=== PATIENT | female | born 1945 | race Caucasian/White ===

== ENCOUNTER 2016-07-03 19:13 | Emergency (ER) | payer MEDICARE, BC ==
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
[2016-07-03 23:06] VITALS: BP 146/73
== END 2016-07-03 20:13 | disposition home or self-care (01) ==
LOC: ER 19:13
DX: S13.9XXA Sprain of joints and ligaments of unspecified parts of neck, initial encounter (principal); V87.7XXA Person injured in collision between other specified motor vehicles (traffic), initial encounter; Z94.0 Kidney transplant status

== ENCOUNTER 2016-12-23 13:21 | Emergency (ER) | payer MEDICARE, BC ==
--- NOTE | 2016-12-23 13:59 | ERNOTE ---
ENT HPI Date of Service: 12/23/16 Presenting Symptoms: other - sore throat Time Seen by Provider: 12/23/16 13:39 Source: patient Exam Limitations: no limitations - Immun/Allergies/Home Medications Immunizations: IMMUNIZATION HX Immunizations Up to Date Yes History of Influenza Vaccine No Hx Pneumococcal Vaccination Yes Allergies/Adverse Reactions: Allergies Allergy/AdvReac Type Severity Reaction Status Date / Time No Known Drug Allergies Allergy Verified 12/23/16 13:38 Home Medications: HOME MEDICATIONS Atenolol [Tenormin] 100 mg PO BID 07/03/16 [Last Taken Unknown] Tacrolimus 1 mg PO BID 07/03/16 [Last Taken Unknown] - History of Present Illness Narrative: Pt. comes in with c/o fever and sore throat for 2 days. Pt. also states that she has rhinorrhea. Pt. has a hx of renal failure with transplant and decreased hearing. Pt. denies any SOB, CP, cough, rhinorrhea, NVD, alleviating factors, aggravating factors, or prehospital treatment. Review of Systems - Review of Systems Constitutional: Present: no symptoms reported. Absent: recent illness, fever, chills, weakness, fatigue, malaise EYE: Present: no symptoms reported ENT: Present: nose congestion, nasal drainage, sore throat Respiratory: Present: no symptoms reported. Absent: shortness of breath, cough , wheezing Cardiology: Present: no symptoms reported. Absent: chest pain, palpitations, edema Gastrointestinal/Abdominal: Present: no symptoms reported. Absent: nausea, vomiting, diarrhea Genitourinary: Present: no symptoms reported Musculoskeletal: Present: no symptoms reported. Absent: back pain, joint pain Skin: Present: no symptoms reported. Absent: rash, change in color Neurological: Present: no symptoms reported. Absent: headache, dizziness/light- headedness, numbness, tingling All Other Systems: All systems neg except as marked - Patient's Past Medical History Patient History - Medical: Renal Failure Patient History - Cardiac/Respiratory: Hypertension Patient History - Cancer: No Hx of Cancer Patient History - Surgical Procedures: Hysterectomy, Total Knee Replacement, T & A Patient History - Other: Organ Transplant - Social History Living Situations: alone Abuse History: No History of abuse Psych History: No pertinent hx Smoking Status: Former smoker Alcohol Use: none Drug Use: none - Immunizations Immunizations Up to Date: Yes Hx Pneumococcal Vaccination: Yes History of Influenza Vaccine: No Physical Exam - Physical Exam General Appearance: Present: wd/wn, alert, no apparent distress Head Exam: Present: normal inspection, no evidence of injury Eye Exam: Normal inspection: bilateral, PERRL: bilateral, EOMI: bilateral Ears, Nose, Throat: Present: hearing decreased, nasal congestion, pharyngeal erythema. Absent: abnormal TM (R), abnormal TM (L), sinus pain/drainage, pharyngeal swelling, tonsillar exudate, dry mucous membranes Neck: Present: normal inspection, nontender. Absent: lymphadenopathy (R), lymphadenopathy (L) Respiratory: Present: no respiratory distress, normal breath sounds, no accessory muscle use, chest nontender, lungs clear Cardiovascular/Chest: Present: regular rate, rhythm, no murmur, normal peripheral pulses Back Exam: Present: normal inspection Extremity Exam: Present: normal inspection Neurological Exam: Present: alert, oriented, normal mood/affect, no motor/ sensory deficits Skin Exam: Present: normal color, warm/dry. Absent: pallor, skin rash ED Progress - Date and Time Seen: Date and Time: 12/23/16 13:54 Pt. with mild cold s/sx and does not need abx t this time but may need them if she prolongs or gets worse so will have pt. follow up with PCP. - Results and Orders Patient's Lab Results:: I have reviewed the patient's lab results. Results and Orders: Laboratory Results - last 24 hr 12/23/16 13:51 Group A Strep Rapid Negative - Vital Signs Patient's Vital Signs:: I have reviewed the patient's vital signs. Vital Signs: Vital Signs 12/23/16 13:29 Temperature 36.0 C L Pulse Rate 76 Respiratory 16 Rate Blood Pressure 158/80 O2 Sat by Pulse 96 Oximetry - Progress/Reassessment Chief Complaint: Sore Throat Departure Clinical Impression: URI (upper respiratory infection) Qualifiers: URI type: unspecified viral URI Qualified Code(s): J06.9 - Acute upper respiratory infection, unspecified - Departure Disposition: Home self-care Condition: Good Instructions: Upper Respiratory Infection, Adult, [id number] Additional Instructions: Please follow up with your primary provider in 2-3 days. Please start Tylenol 650mg every 4 hours as needed for fever or pain. Please start Claritin 10 mg daily to dry up nasal secretions. Referrals: Julio Cesar Arora MD [Primary Care Provider] -
[2016-12-23 14:37] VITALS: BP 122/71
== END 2016-12-23 14:30 | disposition home or self-care (01) ==
LOC: ER 13:21
DX: J06.9 Acute upper respiratory infection, unspecified (principal)

== ENCOUNTER 2017-09-05 09:30 | Inpatient (IN) ==
[2017-09-05] MEDS ORDERED: LABETALOL HCL 5 MG/ML VIAL IV ONE ×2 (09:58→11:03)
[2017-09-05 10:12] LABS: Hematocrit 41.7 % (37.0-47.0); Hemoglobin 13.6 gm/dL (12.5-16.0); Mean Cell Volume 91.4 fl (78-100); Mean Corpuscular Hemoglobin 29.8 pg (27-31); Mean Corpuscular Hgb Conc 32.6 g/dl (32-36); Mean Platelet Volume 8.6 fl (8-12.5); Neutrophil # 4.5 K/mm3 (1.3-6.0); Neutrophil % 78.2 % (42-75.0); Platelet Count 174 K/mm3 (150-450); Red Blood Count 4.56 M/mm3 (4.2-5.4); Red Cell Distribution Width 12.7 % (11.5-14.0); White Blood Count 5.8 K/mm3 (4.0-10.5)
[2017-09-05 10:41] LABS: Urine Bilirubin Negative (NEGATIVE); Urine Blood 25 /ul (NEGATIVE); Urine Ketone Negative (NEGATIVE); Urine Nitrite Negative (NEGATIVE); Urine Protein 15 mg/dL (NEGATIVE); Urine Specific Gravity 1.015 SP.GR. (1.005-1.010); Urine Urobilinogen Normal (NORMAL)
[2017-09-05 10:43] LABS: ALT 18 U/L (19-67); AST 16 U/L (0-48); Albumin * 3.6 gm/dl (3.4-5.0); Alkaline Phosphatase * 95 U/L (50-170); BUN/Creatinine Ratio 16.8 (9.0-21.6); Bilirubin, Total 0.4 mg/dL (0.0-1.1); Blood Urea Nitrogen 25 mg/dL (3-23); Ca. Corrected For Albumin 10.1 mg/dL (8.4-10.2); Calcium * 10.1 mg/dL (7.9-10.9); Carbon Dioxide 28.2 mmol/L (24-32.6); Glucose * 105 mg/dL (70-110); Total Protein 7.7 gm/dL (6.2-8.2); Troponin I Less than 0.017 ng/ml (0.00-0.10)
[2017-09-05 10:51] LABS: Anion Gap 11.9 mmol/L (6.8-13.8); Chloride 106 mmol/L (97-106); Potassium 5.1 mmol/L (3.4-4.6); Sodium 141 mmol/L (132-142)
[2017-09-05 10:52] LABS: Urine Appearance Cloudy (CLEAR); Urine Color Yellow
[2017-09-05 10:53] LABS: Urine Bacteria 2+
[2017-09-05] MEDS ORDERED: hydrALAZINE HCL 20 MG/ML VIAL ONE (11:59)
[2017-09-05] MEDS ORDERED: hydrALAZINE HCL 20 MG/ML VIAL IV ONE (11:59)
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
[2017-09-05] MEDS: NORMAL SALINE 1,000 ML IV PRN ×2 (13:22→21:46)
[2017-09-05] MEDS: ACETAMINOPHEN 500 MG TABLET PO PRN ×2 (17:08→23:42)
[2017-09-05] MEDS ORDERED: hydrOXYzine HCL 25 MG TABLET PO PRN (17:35)
[2017-09-05] MEDS ORDERED: ALPRAZOLAM 0.25 MG PO PRN (17:35)
[2017-09-05] MEDS ORDERED: ALPRAZolam 0.5 MG TABLET PO PRN (17:48)
[2017-09-05] MEDS: CIPROFLOXACIN HCL 250 MG TABLET PO SCH (17:59)
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
[2017-09-05] MEDS: FAMOTIDINE 20 MG TABLET PO SCH (20:30)
[2017-09-05] MEDS: ATENOLOL 100 MG TABLET PO SCH (20:31)
[2017-09-06 04:48] LABS: Hematocrit 40.3 % (37.0-47.0); Hemoglobin 12.9 gm/dL (12.5-16.0); Mean Cell Volume 91.2 fl (78-100); Mean Corpuscular Hemoglobin 29.2 pg (27-31); Mean Platelet Volume 8.6 fl (8-12.5); Neutrophil % 75.5 % (42-75.0); Platelet Count 172 K/mm3 (150-450); Red Blood Count 4.42 M/mm3 (4.2-5.4); Red Cell Distribution Width 12.8 % (11.5-14.0); White Blood Count 6.6 K/mm3 (4.0-10.5)
[2017-09-06 04:54] LABS: Anion Gap 15.3 mmol/L (6.8-13.8); BUN/Creatinine Ratio 15.4 (9.0-21.6); Calcium * 9.9 mg/dL (7.9-10.9); Carbon Dioxide 23.8 mmol/L (24-32.6); Estimated Creat Clear 39.2; Potassium 4.1 mmol/L (3.4-4.6)
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
[2017-09-06] MEDS: ENALAPRIL MALEATE 5 MG TABLET PO SCH (08:25)
[2017-09-06] MEDS: CIPROFLOXACIN HCL 250 MG TABLET PO SCH ×2 (08:25→20:36)
[2017-09-06] MEDS: SERTRALINE HCL 100 MG TABLET PO SCH (08:25)
[2017-09-06] MEDS: ATENOLOL 100 MG TABLET PO SCH ×2 (08:25→20:37)
[2017-09-06] MEDS: CYCLOBENZAPRINE HCL 10 MG TABLET PO SCH (08:25)
[2017-09-06] MEDS: ASPIRIN 81 MG TABLET.DR PO SCH (08:27)
--- NOTE | 2017-09-06 18:20 | PN ---
Dionna Note - Interim Date: 09/06/17 Time: 17:00 Narrative: 09/06/17 18:17 I received a call from nursing about 5:00 this afternoon stating that Ade had become much more confused again. Also a friend/relative was here visiting and confirms that she is not at her usual baseline mentally. She does not believe it is safe for her to go home and be alone. Nursing is working on care home placement at the moment. But she will have to stay tonight and be reevaluated again tomorrow. We'll continue her home medications and not restart an IV. I'll also discontinue her telemetry.
[2017-09-06] MEDS ORDERED: ATENOLOL 50 MG TABLET ONE (20:30)
[2017-09-06] MEDS: FAMOTIDINE 20 MG TABLET PO SCH (20:36)
[2017-09-07] MEDS: ATENOLOL 100 MG TABLET PO SCH ×2 (10:05→20:39)
[2017-09-07] MEDS: ASPIRIN 81 MG TABLET.DR PO SCH (10:05)
[2017-09-07] MEDS: SERTRALINE HCL 100 MG TABLET PO SCH (10:06)
[2017-09-07] MEDS: ENALAPRIL MALEATE 5 MG TABLET PO SCH (10:06)
[2017-09-07] MEDS: CIPROFLOXACIN HCL 250 MG TABLET PO SCH ×2 (10:06→20:38)
[2017-09-07] MEDS: CYCLOBENZAPRINE HCL 10 MG TABLET PO SCH (10:07)
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
[2017-09-07] MEDS ORDERED: ENOXAPARIN SODIUM 40 MG/0.4 ML SYRG SC SCH (16:30)
[2017-09-07] MEDS: FAMOTIDINE 20 MG TABLET PO SCH (20:38)
[2017-09-08] MEDS ORDERED: CLOPIDOGREL BISULFATE 75 MG TABLET PO STA (10:12)
[2017-09-08] MEDS ORDERED: ASPIRIN 325 MG TABLET.DR PO ONE (10:12)
[2017-09-08] MEDS ORDERED: ASPIRIN 81 MG TAB.CHEW ONE (10:19)
[2017-09-08] MEDS: ENALAPRIL MALEATE 5 MG TABLET PO SCH (10:24)
[2017-09-08] MEDS: SERTRALINE HCL 100 MG TABLET PO SCH (10:25)
[2017-09-08] MEDS: ATENOLOL 100 MG TABLET PO SCH (10:25)
[2017-09-08] MEDS: CYCLOBENZAPRINE HCL 10 MG TABLET PO SCH (10:26)
[2017-09-08] MEDS: ASPIRIN 81 MG TABLET.DR PO SCH (10:26)
[2017-09-08] MEDS: CIPROFLOXACIN HCL 250 MG TABLET PO SCH (10:26)
[2017-09-08 11:03] VITALS: BP 109/61
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
[2017-09-08] MEDS ORDERED: TACROLIMUS ANHYDROUS 0.5 MG CAPSULE PO SCH (11:15)
[2017-09-08] MEDS ORDERED: MYCOPHENOLATE MOFETIL 500 MG TABLET PO SCH (11:15)
== END 2017-09-08 11:28 | disposition short-term general hospital (02) | DRG 65 ==
LOC: ER 09:30 → MS 12:44 → OBSVTOIN 13:48
PROVIDERS: ADMIT Family Medicine; ATTEND Family Medicine
DX: Z94.0 Kidney transplant status; R47.01 Aphasia; V87.7XXA Person injured in collision between other specified motor vehicles (traffic), initial encounter; E78.5 Hyperlipidemia, unspecified; D32.9 Benign neoplasm of meninges, unspecified; Z79.899 Other long term (current) drug therapy; Z79.82 Long term (current) use of aspirin; Z48.298 Encounter for aftercare following other organ transplant; G81.90 Hemiplegia, unspecified affecting unspecified side; N39.0 Urinary tract infection, site not specified; I10 Essential (primary) hypertension; G44.209 Tension-type headache, unspecified, not intractable; I63.50 Cerebral infarction due to unspecified occlusion or stenosis of unspecified cerebral artery; R41.0 Disorientation, unspecified; R40.2412 Glasgow coma scale score 13-15, at arrival to emergency department
CPT/HCPCS: 36415; 70450; 70544; 70553; 71010; 71045; 80048; 80053; 80197; 81001; 82374; 82565; 83605; 84132; 84484; 84520; 85018; 85025; 85048; 85049; 86140; 87040; 87077; 87086; 87186; 93005; 96365; 96375; 96376; 97162; 97166; 97530; 99285; G8978; G8979; G8980; G8987; G8988; G8989

== ENCOUNTER 2019-12-06 08:02 | Inpatient (IN) ==
[2019-12-06] MEDS ORDERED: ACETAMINOPHEN 1,000 MG/100 ML BTL IV ONE (08:20)
[2019-12-06 08:50] LABS: Hematocrit 34.5 % (37.0-47.0); Hemoglobin 10.7 gm/dL (12.5-16.0); Mean Cell Volume 87.6 fl (78-100); Mean Corpuscular Hemoglobin 27.2 pg (27-31); Mean Platelet Volume 8.8 fl (8-12.5); Neutrophil % 89.1 % (42-75.0); Platelet Count 201 K/mm3 (150-450); Red Blood Count 3.94 M/mm3 (4.2-5.4); Red Cell Distribution Width 14.4 % (11.5-14.0); White Blood Count 20.2 K/mm3 (4.0-10.5)
[2019-12-06 09:05] LABS: Urine Appearance Cloudy (CLEAR); Urine Color Yellow
[2019-12-06 09:06] LABS: Urine Bilirubin Negative (NEGATIVE); Urine Blood 150 /ul (NEGATIVE); Urine Ketone Negative (NEGATIVE); Urine Specific Gravity 1.015 SP.GR. (1.005-1.010); Urine pH 5.5 pH (5.0-7.0)
[2019-12-06 09:07] LABS: Urine Nitrite Negative (NEGATIVE); Urine Protein 30 mg/dL (NEGATIVE); Urine Urobilinogen Normal (NORMAL)
[2019-12-06 09:12] LABS: Urine Bacteria 4+; Urine WBC >50 /hpf (0-5)
[2019-12-06] MEDS ORDERED: LEVOFLOXACIN IN DEXTROSE 5 % 500 MG/100 ML BAG IV ONE (09:13)
[2019-12-06 09:19] LABS: Albumin * 3.3 gm/dl (3.4-5.0); Anion Gap 16.6 mmol/L (6.8-13.8); BUN/Creatinine Ratio 23.2 (9.0-21.6); Bilirubin, Total 0.8 mg/dL (0.0-1.1); Ca. Corrected For Albumin 10.2 mg/dL (8.4-10.2); Carbon Dioxide 19.2 mmol/L (24-32.6); Potassium 3.8 mmol/L (3.4-4.6); Total Protein 7.5 gm/dL (6.2-8.2)
--- NOTE | 2019-12-06 11:12 | ERNOTE ---
ENT HPI Date of Service: 12/06/19 Presenting Symptoms: other - fever Time Seen by Provider: 12/06/19 08:31 Source: patient Exam Limitations: hard of hearing - Immun/Allergies/Home Medications Immunizations: IMMUNIZATION HX Immunizations Up to Date Yes History of Influenza Vaccine More Information Required Hx Pneumococcal Vaccination More Information Required Allergies/Adverse Reactions: Allergies Allergy/AdvReac Type Severity Reaction Status Date / Time amlodipine AdvReac Other Verified 05/08/19 09:13 Home Medications: HOME MEDICATIONS Aspirin [Aspirin EC] 81 mg PO DAILY 09/05/17 [Last Taken Unknown] allopurinol 100 mg tablet 100 mg PO DAILY #31 tab 04/01/18 [Last Taken Unknown] atorvastatin 40 mg tablet 40 mg PO HS #31 tab 04/01/18 [Last Taken Unknown] mycophenolate sodium 360 mg tablet,delayed release 360 mg PO BID tab 04/01/18 [Last Taken Unknown] carvedilol 25 mg tablet 25 mg PO BID #62 tab 06/18/18 [Last Taken Unknown] tacrolimus 0.5 mg capsule 0.5 mg PO Q12H cap 08/20/18 [Last Taken Unknown] cetirizine 10 mg tablet 10 mg PO DAILY tab 10/15/18 [Last Taken Unknown] menthol 4 % topical gel 1 applic TP TID #118 ml 12/02/18 [Last Taken Unknown] acetaminophen 500 mg tablet 500 mg PO Q6H PRN tab 12/31/18 [Last Taken Unknown] acetaminophen 500 mg tablet 500 mg PO TID #90 tab 12/31/18 [Last Taken Unknown] artifi.tears(hypromellose)(PF) 0.3 % eye drops 2 drp OP TID 12/31/18 [Last Taken Unknown] hydrochlorothiazide 12.5 mg capsule 12.5 mg PO DAILY #30 cap 01/01/19 [Last Taken Unknown] multivitamin,cr-audr-pziummwi 1 tab PO DAILY #30 tab 02/04/19 [Last Taken Unknown] wheat dextrin 3 gram/3.8 gram oral powder 1.5 g PO BID g 02/04/19 [Last Taken Unknown] colestipol 1 gram tablet 1 g PO TID tab 02/25/19 [Last Taken Unknown] sertraline 25 mg tablet 25 mg PO DAILY #30 tab 02/25/19 [Last Taken Unknown] peg [id number]-[id number] 1 %-0.2 %-0.2 % eye drops 1 drp OP 4-6XD PRN #15 ml 06/04/19 [Last Taken Unknown] naproxen 250 mg tablet 250 mg PO BID PRN #14 tab 10/01/19 [Last Taken Unknown] oxybutynin chloride 5 mg tablet,extended release 24 hr 5 mg PO DAILY 11/05/19 [Last Taken Unknown] - History of Present Illness Narrative: Patient presents from the longterm. She has been having fevers. Had labs yesterday at the [facility] with negative Covid testing but elevated WBC. Still having fevers today. Sent to ED. Some cough, mild ST, nausea. Denies abdominal pain. No vomiting. Nothing makes this better or worse. No recent hospitalization. Severity: Present: moderate ENT Location: Present: other - mild ST Prearrival Treatment: Present: prescription meds Modifying Factors - Improves: Reports: nothing Modifying Factors - Worsens: Reports: nothing Associated Symptoms - ENT: Reports: sore throat. Denies: poor fluid intake, headache Prior Treament: Denies: recently hospitalized, currently on antibiotics Review of Systems - Review of Systems Constitutional: Present: fever EYE: Present: no symptoms reported ENT: Present: sore throat Respiratory: Present: cough Cardiology: Absent: chest pain Gastrointestinal/Abdominal: Present: nausea. Absent: vomiting, abdominal pain Genitourinary: Present: frequency All Other Systems: All systems neg except as marked Medical History (Last Reviewed 12/06/19 @ 11:04 by Keon Weaver MD) CAD (coronary artery disease) (Chronic) Onset Date: Unknown Arthropathy (Chronic) Onset Date: Unknown Renal cell carcinoma (Resolved) Onset Date: Unknown Hypertension (Chronic) Onset Date: Unknown Cerebral artery occlusion with cerebral infarction (Chronic) Onset Date: Unknown Gout Paulo's disease Kidney disease Onset Date: ~2004 End stage renal disease secondary to HTN and nephrectomy Neuralgia, post-herpetic Onset Date: ~01/07/14 Osteoarthritis Onset Date: ~07/2010 Bilateral Knees Right shoulder pain Onset Date: ~04/30/15 Anemia Anxiety Back pain, thoracic Onset Date: ~09/19/13 Chronic GERD Chronic kidney disease, stage IV (severe) Onset Date: ~11/21/13 GI bleed Onset Date: ~2009 Shingles Onset Date: ~11/21/13 Right Leg Surgical History: Surgical History (Last Reviewed 12/06/19 @ 11:05 by Keon Weaver MD) History of esophagogastroduodenoscopy (EGD) Onset Date: ~04/09/13 History of nephrectomy Onset Date: ~2004 Due to renal cell cancer Hx of colonoscopy Onset Date: ~01/15/15 Hx of hysterectomy Hx of kidney transplant Onset Date: ~11/23/09 Hx of knee surgery 2006, 2011; Left Knee- [facility] Hx of tonsillectomy Family History: Family History (Last Reviewed 12/06/19 @ 11:05 by Keon Weaver MD) Father Diabetes Heart disease Myocardial infarction Mother Cancer Stomach ulcer Social History: (Last Reviewed 12/06/19 @ 11:05 by Keon Weaver MD) Social History: Marital status: / lives independently: Yes household members: none current occupational status: retired Highest education level completed: high school graduate Service: No Tobacco: Smoking Status: Never smoker Alcohol: alcohol intake: former Substance Use: substance use type: does not use Dietary Habits: caffeine: Yes Physical Exam - Physical Exam General Appearance: Present: alert, no apparent distress Head Exam: Present: normal inspection, no evidence of injury Eye Exam: Normal inspection: bilateral, PERRL: bilateral Ears, Nose, Throat: Present: other - minimal posterior oropharyngeal erythema. Absent: nasal congestion Neck: Present: normal inspection Respiratory: Present: no respiratory distress, normal breath sounds, other - diminished breath sounds bilaterally Cardiovascular/Chest: Present: regular rate, rhythm Gastrointestinal/Abdominal: Present: normal bowel sounds, nondistended, soft, other - Mild tenderness over transplant site right low abdomen Back Exam: Absent: CVA tenderness (R), CVA tenderness (L) Extremity Exam: Present: other - mild edema Neurological Exam: Present: alert, no motor/sensory deficits, other - no acute unilateral focal motor or sensory deficits Skin Exam: Present: normal color, warm/dry Progress - Results and Orders Patient's Lab Results:: I have reviewed the patient's lab results. - Vital Signs Patient's Vital Signs:: I have reviewed the patient's vital signs. Vital Signs: Vital Signs 12/06/19 08:06 12/06/19 08:16 09/26/20 08:46 Temperature 37.7 C 37.7 C 37.7 C Pulse Rate 98 98 92 Respiratory Rate 22 H 22 H 18 Blood Pressure 141/64 141/64 138/48 O2 Sat by Pulse Oximetry 93 93 93 12/06/19 09:16 12/06/19 09:30 Temperature 37.7 C 37.7 C Pulse Rate 90 89 Respiratory Rate 16 16 Blood Pressure 153/59 H 155/53 H O2 Sat by Pulse Oximetry 93 94 - X-Ray X-Ray #1 X-Ray: chest Interpretation: Interp. by me X-ray Comments: I personally reviewed images and official radiology report. I also spoke to the radiologyst regarding this film. The upper mediastinum is thought to be due to goiter noted on prior CT - Progress/Reassessment Chief Complaint: Sore Throat Progress Note-Subjective: 12/06/19 11:07 IV ABx give, possible pneumonia on CXR and also UTI. Given her history of Transplant at [facility] I spoke with Dr Allen at [facility] who is rehabilitation technician for renal transplant. We discussed her case and work up here. I t was felt she could be safely admitted here at [facility]. IV Abx, await cultures,. Hole Mycophenolate for approx 2 days until WBC count comes down then restart mycophenolate at home dose. Tac level should be 3-7 at this point for her. I spoke with Dr Campuzano who will admit. I gave IV levaquin here to cover both UTI and pneumonia. Departure Clinical Impression: Complicated UTI (urinary tract infection), Pneumonia, Renal transplant, status post, Fever - Departure Disposition: Still a patient Condition: Fair Referrals: Sandra Garcia DO [Primary Care Provider] -
[2019-12-06] MEDS ORDERED: ACETAMINOPHEN 500 MG TABLET PO PRN (13:26)
[2019-12-06] MEDS ORDERED: POLYVINYL ALCOHOL 150 DROP BTL OP PRN (13:29)
[2019-12-06] MEDS ORDERED: ENOXAPARIN SODIUM 40 MG/0.4 ML SYRG SC SCH (13:30)
--- NOTE | 2019-12-06 14:01 | HP ---
Chief Complaint - Chief Complaint Date of Service: 12/06/19 Time of Service: 13:50 Chief Complaint: I have had fever cough and weakness since yesterday. History of Present Illness: 74-year-old female with past medical history of renal transplant, hypertension, obesity, Paulo's disease, Gout, CAD, and depression was brought to the ER from the [facility] for evaluation of recurrent fever, chills, confusion and weakness that started yesterday. Nursing staff from the [facility] report that the patient started having fevers yesterday and appeared confused and disoriented. She also complained of chills and presented a recurrent cough. Labs were ordered at the [facility] and the patient was found to be negative for COVID-19 but was found to have a significant leukocytosis on CBC and worsening of her renal function. She also had a positive urinalysis indicating a UTI. Given the patient's presentation decision to taken to the ER for evaluation was made. Once in the ER the lab abnormalities were confirmed and the ER physician contacted the transplant team at the [facility] where the patient underwent her renal transplant, and they suggested keeping the patient here for treatment of her UTI and possible pneumonia that was detected on a chest x-ray. They also recommended holding her mycophenolate but continuing her tacrolimus. Patient continues to urinate and does not present hematuria but given her transplant history we will need to watch her renal function carefully. Medical History (Last Reviewed 12/06/19 @ 11:04 by Keon Weaver MD) CAD (coronary artery disease) (Chronic) Onset Date: Unknown Arthropathy (Chronic) Onset Date: Unknown Renal cell carcinoma (Resolved) Onset Date: Unknown Hypertension (Chronic) Onset Date: Unknown Cerebral artery occlusion with cerebral infarction (Chronic) Onset Date: Unknown Gout Paulo's disease Kidney disease Onset Date: ~2004 End stage renal disease secondary to HTN and nephrectomy Neuralgia, post-herpetic Onset Date: ~01/07/14 Osteoarthritis Onset Date: ~07/2010 Bilateral Knees Right shoulder pain Onset Date: ~04/30/15 Anemia Anxiety Back pain, thoracic Onset Date: ~09/19/13 Chronic GERD Chronic kidney disease, stage IV (severe) Onset Date: ~11/21/13 GI bleed Onset Date: ~2009 Shingles Onset Date: ~11/21/13 Right Leg Surgical History: Surgical History (Last Reviewed 12/06/19 @ 11:05 by Keon Weaver MD) History of esophagogastroduodenoscopy (EGD) Onset Date: ~04/09/13 History of nephrectomy Onset Date: ~2004 Due to renal cell cancer Hx of colonoscopy Onset Date: ~01/15/15 Hx of hysterectomy Hx of kidney transplant Onset Date: ~11/23/09 Hx of knee surgery 2006, 2011; Left Knee- [facility] Hx of tonsillectomy Family History: Family History (Last Reviewed 12/06/19 @ 11:05 by Keon Weaver MD) Father Diabetes Heart disease Myocardial infarction Mother Cancer Stomach ulcer Social History: (Last Reviewed 12/06/19 @ 11:05 by Keon Weaver MD) Social History: Marital status: / lives independently: Yes household members: none current occupational status: retired Highest education level completed: high school graduate Service: No Tobacco: Smoking Status: Never smoker Alcohol: alcohol intake: former Substance Use: substance use type: does not use Dietary Habits: caffeine: Yes Peds Patient Hx - Developmental: No Pertinent Hx Peds Patient Hx - Medical: No Pertinent Hx Peds Patient Hx - Cardiac/Respiratory: No Pertinent Hx Peds Patient Hx - Surgical: No Surgical History Patient History - Cancer: No Hx of Cancer Review Of Systems (GEN) - Review of Systems Generalized/Overall Review: Present: Chills, Fever EENTM: Present: No Symptoms Reported Respiratory: Present: Cough Cardiac: Present: No Symptoms Reported Abdominal: Present: No Symptoms Reported Genitourinary: Present: No Symptoms Reported Musculoskeletal: Present: No Symptoms Reported Neurological: Present: Other - Occasional confusion Skin: Present: No Symptoms Reported Endocrine: Present: No Symptoms Reported Immunizations: IMMUNIZATION HX Immunizations Up to Date Yes History of Influenza Vaccine More Information Required Hx Pneumococcal Vaccination More Information Required Allergies/Adverse Reactions: Allergies Allergy/AdvReac Type Severity Reaction Status Date / Time amlodipine AdvReac Other Verified 05/08/19 09:13 Home Medications: HOME MEDICATIONS Aspirin [Aspirin EC] 81 mg PO DAILY 09/05/17 [Last Taken Unknown] allopurinol 100 mg tablet 100 mg PO DAILY #31 tab 04/01/18 [Last Taken Unknown] atorvastatin 40 mg tablet 40 mg PO HS #31 tab 04/01/18 [Last Taken Unknown] mycophenolate sodium 360 mg tablet,delayed release 360 mg PO BID tab 04/01/18 [Last Taken Unknown] carvedilol 25 mg tablet 25 mg PO BID #62 tab 06/18/18 [Last Taken Unknown] tacrolimus 0.5 mg capsule 0.5 mg PO Q12H cap 08/20/18 [Last Taken Unknown] cetirizine 10 mg tablet 10 mg PO DAILY tab 10/15/18 [Last Taken Unknown] menthol 4 % topical gel 1 applic TP TID #118 ml 12/02/18 [Last Taken Unknown] acetaminophen 500 mg tablet 500 mg PO Q6H PRN tab 12/31/18 [Last Taken Unknown] acetaminophen 500 mg tablet 500 mg PO TID #90 tab 12/31/18 [Last Taken Unknown] artifi.tears(hypromellose)(PF) 0.3 % eye drops 2 drp OP TID 12/31/18 [Last Taken Unknown] hydrochlorothiazide 12.5 mg capsule 12.5 mg PO DAILY #30 cap 01/01/19 [Last Taken Unknown] multivitamin,we-raof-vgypssrp 1 tab PO DAILY #30 tab 02/04/19 [Last Taken Unknown] wheat dextrin 3 gram/3.8 gram oral powder 1.5 g PO BID g 02/04/19 [Last Taken Unknown] colestipol 1 gram tablet 1 g PO TID tab 02/25/19 [Last Taken Unknown] sertraline 25 mg tablet 25 mg PO DAILY #30 tab 02/25/19 [Last Taken Unknown] peg 110-rzcajegpdldh-skzmdntu 1 %-0.2 %-0.2 % eye drops 1 drp OP 4-6XD PRN #15 ml 06/04/19 [Last Taken Unknown] naproxen 250 mg tablet 250 mg PO BID PRN #14 tab 10/01/19 [Last Taken Unknown] oxybutynin chloride 5 mg tablet,extended release 24 hr 5 mg PO DAILY 11/05/19 [Last Taken Unknown] Exam - Exam Vital Signs: Vital Signs - Last Taken Temp 37.7 C 12/06/19 09:30 Pulse 82 12/06/19 12:00 Resp 19 12/06/19 12:00 BP 136/55 12/06/19 12:00 Pulse Ox 95 12/06/19 12:00 Constitutional: Present: Alert, Oriented x3, Cooperative, Well developed, Well nourished, No distress, Morbidly obese ENT Exam: Present: normal ENT inspection, pharynx normal, TMs normal, hard of hearing Eye Exam: bilateral eye: normal inspection, PERRL, EOMI Neck: Present: non-tender, full range of motion, supple, normal inspection, trachea midline Back Exam: Present: normal inspection, no CVA tenderness, no vertebral tenderness Breasts: Present: Exam deferred, Nontender Respiratory: Present: chest non-tender, lungs clear, normal breath sounds, no re spiratory distress, no accessory muscle use Cardiovascular/Chest: Present: normal peripheral pulses, regular rate, rhythm, no chest tenderness, no edema, no gallop, no JVD, no murmur, no rub Peripheral Pulses: dorsalis-pedis (R): 2+, dorsalis-pedis (L): 2+ Abdomen: Present: Normal bowel sounds, soft, nontender, nondistended, no rebound tenderness, no hepatospenomegaly, no masses, obese /Rectal: Present: Exam deferred Extremity: Present: normal range of motion, non-tender, normal inspection, no pedal edema, no calf tenderness, normal capillary refill, pelvis stable Skin Exam: Present: normal color, warm/dry, no cyanosis Lymphatic: Present: no adenopathy Neurologic: Present: laboratory courier II-XII nml as tested, normal cerebellar test, no motor/sensory deficits, alert, normal mood/affect, oriented x 3 Appearance: Present: appropriate appearance, appropriate insight, neat, no memory impairment Eye contact: Present: cooperative, good eye contact, normal speech Thoughts: Present: normal thought pattern, no apparent hallucination Diagnostic Studies: Abnormal Lab Results 12/06/19 12/06/19 12/06/19 Range/Units 08:37 08:45 08:55 WBC 20.2 H (4.0-10.5) K/mm3 RBC 3.94 L (4.2-5.4) M/mm3 Hgb 10.7 L (12.5-16.0) gm/dL Hct 34.5 L (37.0-47.0) % MCHC 31.0 L (32-36) g/dl RDW 14.4 H (11.5-14.0) % Immature Gran % (Auto) 0.50 H (0.001-0.429) % Immature Gran # (Auto) 0.11 H (0.000-0.0310) K/mm3 Neutrophils % 89.1 H (42-75.0) % Lymphocytes % 3.2 L (20-51) % Neutrophils # 18.0 H (1.3-6.0) K/mm3 Lymphocytes # 0.64 L (1.5-3.5) k/mm3 Monocytes # 1.4 H (0.0-1.0) k/mm3 Carbon Dioxide 19.2 L (24-32.6) mmol/L Anion Gap 16.6 H (6.8-13.8) mmol/L BUN 44 H (3-23) mg/dL Creatinine 1.90 H (0.4-1.4) mg/dL Est GFR (Non-Af Amer) 27 L (60-130) mL/min BUN/Creatinine Ratio 23.2 H (9.0-21.6) Random Glucose 141 H (70-110) mg/dL Albumin 3.3 L (3.4-5.0) gm/dl Urine Protein 30 H (NEGATIVE) mg/dL Urine Blood 150 H (NEGATIVE) /ul Prot Sulfosalicylic Acd 2+ H (0) mg/dL Ur Leukocyte Esterase 100 H (NEGATIVE) /ul Urine RBC 5-10 H (0-5) /hpf Urine WBC >50 H (0-5) /hpf Urine Bacteria 4+ H (NONE) Laboratory Results WBC 20.2 K/mm3 (4.0-10.5) H 12/06/19 08:45 RBC 3.94 M/mm3 (4.2-5.4) L 12/06/19 08:45 Hgb 10.7 gm/dL (12.5-16.0) L 12/06/19 08:45 Hct 34.5 % (37.0-47.0) L 12/06/19 08:45 MCV 87.6 fl (78-100) 12/06/19 08:45 MCH 27.2 pg (27-31) 12/06/19 08:45 MCHC 31.0 g/dl (32-36) L 12/06/19 08:45 RDW 14.4 % (11.5-14.0) H 12/06/19 08:45 Plt Count 201 K/mm3 (150-450) 12/06/19 08:45 MPV 8.8 fl (8-12.5) 12/06/19 08:45 Immature Gran % (Auto) 0.50 % (0.001-0.429) H 12/06/19 08:45 Immature Gran # (Auto) 0.11 K/mm3 (0.000-0.0310) H 12/06/19 08:45 Neutrophils % 89.1 % (42-75.0) H 12/06/19 08:45 Lymphocytes % 3.2 % (20-51) L 12/06/19 08:45 Monocytes % 7.1 % (0.0-9) 12/06/19 08:45 Eosinophils % 0.0 % (0.0-3.0) 12/06/19 08:45 Basophils % 0.1 % (0.0-1.0) 12/06/19 08:45 Nucleated RBC % 0.0 k/mm3 (0-1) 12/06/19 08:45 Neutrophils # 18.0 K/mm3 (1.3-6.0) H 12/06/19 08:45 Lymphocytes # 0.64 k/mm3 (1.5-3.5) L 12/06/19 08:45 Monocytes # 1.4 k/mm3 (0.0-1.0) H 12/06/19 08:45 Eosinophils # 0.0 k/mm3 (0.0-0.7) 12/06/19 08:45 Absolute Basophils 0.0 k/mm3 (0.0-0.1) 12/06/19 08:45 Sodium 136 mmol/L (132-142) 12/06/19 08:37 Plasma Sodium 137 mmol/L (130-142) 12/06/19 08:37 Potassium 3.8 mmol/L (3.4-4.6) 12/06/19 08:37 Chloride 104 mmol/L (97-106) 12/06/19 08:37 Carbon Dioxide 19.2 mmol/L (24-32.6) L 12/06/19 08:37 Anion Gap 16.6 mmol/L (6.8-13.8) H 12/06/19 08:37 BUN 44 mg/dL (3-23) H 12/06/19 08:37 Creatinine 1.90 mg/dL (0.4-1.4) H 12/06/19 08:37 Est GFR (Non-Af Amer) 27 mL/min (60-130) L 12/06/19 08:37 BUN/Creatinine Ratio 23.2 (9.0-21.6) H 12/06/19 08:37 Random Glucose 141 mg/dL (70-110) H 12/06/19 08:37 Lactic Acid, Venous 1.0 mmol/L (0.4-2.0) 12/06/19 08:37 Calcium 10.0 mg/dL (7.9-10.9) 12/06/19 08:37 Calcium Adj for Albumin 10.2 mg/dL (8.4-10.2) 12/06/19 08:37 Total Bilirubin 0.8 mg/dL (0.0-1.1) 12/06/19 08:37 AST 20 U/L (0-48) 12/06/19 08:37 ALT 26 U/L (19-67) 12/06/19 08:37 Alkaline Phosphatase 82 U/L (50-170) 12/06/19 08:37 Total Protein 7.5 gm/dL (6.2-8.2) 12/06/19 08:37 Albumin 3.3 gm/dl (3.4-5.0) L 12/06/19 08:37 Urine Color Yellow 12/06/19 08:55 Urine Appearance Cloudy (CLEAR) 12/06/19 08:55 Urine pH 5.5 pH (5.0-7.0) 12/06/19 08:55 Ur Specific [place] 1.015 SP.GR. (1.005-1.010) 12/06/19 08:55 Urine Protein 30 mg/dL (NEGATIVE) H 12/06/19 08:55 Urine Glucose (UA) Negative mg/dL (NEGATIVE) 12/06/19 08:55 Urine Ketones Negative mg/dL (NEGATIVE) 12/06/19 08:55 Urine Blood 150 /ul (NEGATIVE) H 12/06/19 08:55 Urine Nitrate Negative (NEGATIVE) 12/06/19 08:55 Urine Bilirubin Negative mg/dl (NEGATIVE) 12/06/19 08:55 Prot Sulfosalicylic Acd 2+ mg/dL (0) H 12/06/19 08:55 Urine Urobilinogen Normal EU/dl (NORMAL) 12/06/19 08:55 Ur Leukocyte Esterase 100 /ul (NEGATIVE) H 12/06/19 08:55 Urine RBC 5-10 /hpf (0-5) H 12/06/19 08:55 Urine WBC >50 /hpf (0-5) H 12/06/19 08:55 Ur Epithelial Cells None seen /hpf (0-5) 12/06/19 08:55 Urine Bacteria 4+ (NONE) H 12/06/19 08:55 Urine Culture Comments Culture to follow 12/06/19 08:55 Monoscreen Negative (NEGATIVE) 12/06/19 08:37 SARS-CoV-2 (PCR) Not detected (NotDetected) 12/06/19 11:12 Group A Strep Rapid Negative (NEGATIVE) 12/06/19 08:37 Assessment/Plan - Narrative Narrative: Patient was evaluated and medical chart was reviewed and decision to admit to [facility] for diagnosis of a UTI, JAZMIN, and possible bronchopneumonia was made. We will keep the patient overnight to treat with IV antibiotics to cover the UTI and possible pneumonia. Repeat labs have been ordered for tomorrow morning for reevaluation of leukocytosis, electrolytes, and renal function. Mycophenolate was held as instructed by the transplant team at the [facility]. - Assessment/Plan (1) Complicated UTI (urinary tract infection) Problem: Acute (2) Pneumonia Problem: Acute (3) Renal transplant, status post Problem: Chronic (4) Fever Problem: Acute (5) CAD (coronary artery disease) Problem: Chronic Qualifiers: (6) Kidney transplant recipient Problem: Chronic (7) Altered mental status Problem: Acute Qualifiers: (8) HTN (hypertension) Problem: Chronic (9) [facility] resident Problem: Chronic
[2019-12-06] MEDS: LORATADINE 10 MG TABLET PO SCH (15:46)
[2019-12-06] MEDS: CARVEDILOL 25 MG TABLET PO SCH ×2 (15:47→20:29)
[2019-12-06] MEDS: ENOXAPARIN SODIUM 30 MG/0.3 ML SYRG SC SCH (15:47)
[2019-12-06] MEDS: TACROLIMUS ANHYDROUS 0.5 MG CAPSULE PO SCH ×2 (15:48→20:30)
[2019-12-06] MEDS: MULTIVITAMIN/IRON/FOLIC ACID 1 TAB TABLET PO SCH (15:49)
[2019-12-06] MEDS: COLESTIPOL HCL 1 G TABLET PO SCH (17:08)
[2019-12-06] MEDS: POLYVINYL ALCOHOL 150 DROP BTL OP SCH (17:08)
[2019-12-06] MEDS: MENTHOL TP SCH (17:09)
[2019-12-06] MEDS: ROSUVASTATIN CALCIUM 20 MG TABLET PO SCH (20:29)
[2019-12-06] MEDS: PSYLLIUM SEED 1 PACKET PACKET PO SCH (20:30)
[2019-12-06] MEDS: PANTOPRAZOLE SODIUM 40 MG TABLET.EC PO SCH (20:30)
[2019-12-07] MEDS: PANTOPRAZOLE SODIUM 40 MG TABLET.EC PO SCH ×2 (06:56→21:22)
[2019-12-07 07:06] LABS: Hematocrit 34.2 % (37.0-47.0); Hemoglobin 10.2 gm/dL (12.5-16.0); Mean Cell Volume 89.3 fl (78-100); Mean Corpuscular Hemoglobin 26.6 pg (27-31); Mean Corpuscular Hgb Conc 29.8 g/dl (32-36); Mean Platelet Volume 8.8 fl (8-12.5); Neutrophil # 14.5 K/mm3 (1.3-6.0); Neutrophil % 87.1 % (42-75.0); Platelet Count 185 K/mm3 (150-450); Red Blood Count 3.83 M/mm3 (4.2-5.4); Red Cell Distribution Width 14.5 % (11.5-14.0); White Blood Count 16.6 K/mm3 (4.0-10.5)
[2019-12-07 07:22] LABS: Albumin * 2.9 gm/dl (3.4-5.0); Anion Gap 15.1 mmol/L (6.8-13.8); BUN/Creatinine Ratio 20.6 (9.0-21.6); Bilirubin, Total 0.7 mg/dL (0.0-1.1); Ca. Corrected For Albumin 10.5 mg/dL (8.4-10.2); Calcium * 9.9 mg/dL (7.9-10.9); Carbon Dioxide 21.4 mmol/L (24-32.6); Potassium 3.5 mmol/L (3.4-4.6); Total Protein 7.3 gm/dL (6.2-8.2)
[2019-12-07] MEDS ORDERED: LEVOFLOXACIN IN DEXTROSE 5 % 500 MG/100 ML BAG IV SCH (09:00)
[2019-12-07] MEDS: POLYVINYL ALCOHOL 150 DROP BTL OP SCH ×3 (09:18→16:37)
[2019-12-07] MEDS: ASPIRIN 81 MG TABLET.DR PO SCH (09:18)
[2019-12-07] MEDS: PSYLLIUM SEED 1 PACKET PACKET PO SCH ×2 (09:19→21:21)
[2019-12-07] MEDS: HYDROCHLOROTHIAZIDE 12.5 MG CAPSULE PO SCH (09:19)
[2019-12-07] MEDS: COLESTIPOL HCL 1 G TABLET PO SCH ×3 (09:19→16:37)
[2019-12-07] MEDS: CARVEDILOL 25 MG TABLET PO SCH ×2 (09:19→21:21)
[2019-12-07] MEDS: LORATADINE 10 MG TABLET PO SCH (09:19)
[2019-12-07] MEDS: MENTHOL TP SCH ×3 (09:28→16:35)
[2019-12-07] MEDS: TACROLIMUS ANHYDROUS 0.5 MG CAPSULE PO SCH ×2 (09:29→21:21)
[2019-12-07] MEDS: SERTRALINE HCL 50 MG TABLET PO SCH (09:29)
[2019-12-07] MEDS: MULTIVITAMIN/IRON/FOLIC ACID 1 TAB TABLET PO SCH (09:30)
[2019-12-07] MEDS: ENOXAPARIN SODIUM 30 MG/0.3 ML SYRG SC SCH (13:14)
[2019-12-07] MEDS ORDERED: NORMAL SALINE 1,000 ML IV ONE (13:34)
--- NOTE | 2019-12-07 13:56 | PN ---
Subjective - Date and Time Seen Date: 12/07/19 Time: 13:49 Subjective Narrative: I feel somewhat better but groggy. Objective Objective Narrative: 74-year-old female admitted for UTI and suspected bronchopneumonia was evaluated at bedside and was found to be afebrile and in no acute distress. Patient's fevers and chills have resolved and she reports feeling better than when she arrived. This morning she appears more alert and less pale. Labs done this morning revealed improvement in her leukocytosis however her renal function has slightly declined. The patient has a history of renal transplantation and her mycophenolate is currently on hold per the recommendation of the transplant team at the [facility]. We will attempt to improve her renal function by giving her IV hydration and reevaluating her labs tomorrow morning. In the meantime we will continue to treat her with antibiotics for UTI. Urine culture revealed that she is growing a gram-negative organism and she was also found to have MRSA in her nares, so Bactroban was added to her treatment. - Review of Systems Generalized/Overall Review: Reports: No Symptoms Reported EENTM: Reports: No Symptoms Reported Respiratory: Reports: Cough Cardiac: Reports: No Symptoms Reported Abdominal: Reports: No Symptoms Reported Genitourinary Symptoms: Reports: No Symptoms Reported Musculoskeletal Complaints: Reports: No Symptoms Reported Neurological: Reports: No Symptoms Reported Skin: Reports: No Symptoms Reported Endocrine: Reports: No Symptoms Reported - Vitals Vitals: Last Vital Signs Temp 37.3 C 12/07/19 10:54 Pulse 85 12/07/19 10:54 Resp 18 12/07/19 10:54 BP 117/54 12/07/19 10:54 Pulse Ox 97 12/07/19 10:54 - Abnormal Lab Findings Abnormal Lab Findings: Abnormal Lab Results 12/07/19 12/07/19 Range/Units 06:35 06:35 WBC 16.6 H (4.0-10.5) K/mm3 RBC 3.83 L (4.2-5.4) M/mm3 Hgb 10.2 L (12.5-16.0) gm/dL Hct 34.2 L (37.0-47.0) % MCH 26.6 L (27-31) pg MCHC 29.8 L (32-36) g/dl RDW 14.5 H (11.5-14.0) % Immature Gran % (Auto) 0.60 H (0.001-0.429) % Immature Gran # (Auto) 0.10 H (0.000-0.0310) K/mm3 Neutrophils % 87.1 H (42-75.0) % Lymphocytes % 4.0 L (20-51) % Neutrophils # 14.5 H (1.3-6.0) K/mm3 Lymphocytes # 0.66 L (1.5-3.5) k/mm3 Monocytes # 1.4 H (0.0-1.0) k/mm3 Carbon Dioxide 21.4 L (24-32.6) mmol/L Anion Gap 15.1 H (6.8-13.8) mmol/L BUN 47 H (3-23) mg/dL Creatinine 2.28 H (0.4-1.4) mg/dL Est GFR (Non-Af Amer) 22 L (60-130) mL/min Random Glucose 126 H (70-110) mg/dL Calcium Adj for Albumin 10.5 H (8.4-10.2) mg/dL Albumin 2.9 L (3.4-5.0) gm/dl - Exam Constitutional: Present: Alert, Oriented x3, Cooperative, Well developed, Well nourished, No distress, Elderly ENT Exam: Present: normal ENT inspection, hearing grossly normal, hard of hearing Neck: Present: non-tender, full range of motion, supple, normal inspection, tr achea midline Breasts: Present: Exam deferred, Nontender Respiratory: Present: chest non-tender, lungs clear, normal breath sounds, no respiratory distress, no accessory muscle use Cardiovascular/Chest: Present: normal peripheral pulses, regular rate, rhythm, no chest tenderness, no edema, no gallop, no JVD, no murmur, no rub Abdomen: Present: Normal bowel sounds, soft, nontender, nondistended, no rebound tenderness, no hepatospenomegaly, no masses, obese /Rectal: Present: Exam deferred Extremity: Present: normal range of motion, non-tender, no pedal edema, no calf tenderness, normal capillary refill, pelvis stable Skin Exam: Present: normal color, warm/dry, no cyanosis Lymphatic: Present: no adenopathy Neurologic: Present: registered dental assistant rda II-XII nml as tested, no motor/sensory deficits, alert, normal mood/affect, oriented x 3 Appearance: Present: appropriate appearance, appropriate insight, neat, no memory impairment Eye contact: Present: cooperative, good eye contact, normal speech Thoughts: Present: normal thought pattern, no apparent hallucination Assessment/Plan Plan Narrative: IV fluids have been ordered to address the patient's renal function, repeat labs have been ordered for tomorrow morning for reevaluation. We will continue on current antibiotics for now until susceptibility report is available. - Problems/Diagnosis (1) Complicated UTI (urinary tract infection) Problem: Acute (2) Pneumonia Problem: Acute (3) Renal transplant, status post Problem: Chronic (4) Fever Problem: Resolved (5) CAD (coronary artery disease) Problem: Chronic Qualifiers: (6) Kidney transplant recipient Problem: Chronic (7) Altered mental status Problem: Resolved Qualifiers: (8) HTN (hypertension) Problem: Chronic (9) half-way resident Problem: Chronic (10) JAZMIN (acute kidney injury) Problem: Acute
[2019-12-07] MEDS: MUPIROCIN 22 APPL TUBE TP SCH ×2 (14:20→21:21)
[2019-12-07] MEDS: ROSUVASTATIN CALCIUM 20 MG TABLET PO SCH (21:22)
[2019-12-08 06:47] LABS: Hemoglobin 9.3 gm/dL (12.5-16.0); Mean Cell Volume 89.3 fl (78-100); Mean Corpuscular Hemoglobin 26.8 pg (27-31); Mean Platelet Volume 8.8 fl (8-12.5); Neutrophil # 7.9 K/mm3 (1.3-6.0); Neutrophil % 82.2 % (42-75.0); Platelet Count 167 K/mm3 (150-450); Red Blood Count 3.47 M/mm3 (4.2-5.4); Red Cell Distribution Width 14.5 % (11.5-14.0); White Blood Count 9.7 K/mm3 (4.0-10.5)
[2019-12-08 06:55] LABS: Albumin * 2.6 gm/dl (3.4-5.0); Anion Gap 14.3 mmol/L (6.8-13.8); BUN/Creatinine Ratio 21.4 (9.0-21.6); Bilirubin, Total 0.4 mg/dL (0.0-1.1); Ca. Corrected For Albumin 10.6 mg/dL (8.4-10.2); Calcium * 9.8 mg/dL (7.9-10.9); Carbon Dioxide 20.3 mmol/L (24-32.6); Potassium 3.6 mmol/L (3.4-4.6); Total Protein 6.7 gm/dL (6.2-8.2)
[2019-12-08] MEDS: PANTOPRAZOLE SODIUM 40 MG TABLET.EC PO SCH (07:41)
--- NOTE | 2019-12-08 08:14 | DS ---
Date of Discharge:: 12/08/19 Hospital Course: Patient with past medical history of renal transplant, previous renal carcinoma, hypertension, coronary artery disease is a resident of the [facility]. She was having some weakness and fever and was brought to the ED, and urinalysis was positive for signs of infection. There is also some questionable pneumonia, so she was started on Levaquin. Since she is status post renal transplant on mycophenolate and tacrolimus, her case was discussed with [facility]. COVID negative. White blood cell count initially were 20.2 with elevated neutrophils. WBC resolved to 9.7 on the day of discharge. She was able to eat and walk to the commode with her walker. She felt comfortable going back to [place] on the day of discharge. Will transition to p.o. Levaquin. Her urinalysis grew Klebsiella, susceptible to p.o. Levaquin. no other medication changes done. On DC, she denied pulmonary complaints. She was felt not to have had pneumonia, but only the UTI responsible for her fever and weakness. Of note, she also had a mild renal injury. Her baseline creatinine appears to be around 1.4, and she peaked at 2.28. GFR appears to be around 40, and decreased to 22 with mild improvement by the day of discharge. Will recheck CMP in 1 week. Procedures Performed: none Results and Findings: Pending Mircobiology Results 12/06/19 08:55 Blood Blood Culture - Preliminary NO GROWTH 24 HOURS Lab Pending Results 12/06/19 08:37: Sodium 136, Plasma Sodium 137, Potassium 3.8, Chloride 104, Carbon Dioxide 19.2 L, Anion Gap 16.6 H, BUN 44 H, Creatinine 1.90 H, Est GFR (Non-Af Amer) 27 L, BUN/Creatinine Ratio 23.2 H, Random Glucose 141 H, Calcium 10.0, Calcium Adj for Albumin 10.2, Total Bilirubin 0.8, AST 20, ALT 26, Alkaline Phosphatase 82, Total Protein 7.5, Albumin 3.3 L 12/06/19 08:37: Lactic Acid, Venous 1.0 12/06/19 08:37: Monoscreen Negative 12/06/19 08:37: Group A Strep Rapid Negative 12/06/19 08:45: WBC 20.2 H, RBC 3.94 L, Hgb 10.7 L, Hct 34.5 L, MCV 87.6, MCH 27.2, MCHC 31.0 L, RDW 14.4 H, Plt Count 201, MPV 8.8, Immature Gran % (Auto) 0.50 H, Immature Gran # (Auto) 0.11 H, Neutrophils % 89.1 H, Lymphocytes % 3.2 L, Monocytes % 7.1, Eosinophils % 0.0, Basophils % 0.1, Nucleated RBC % 0.0, Neutrophils # 18.0 H, Lymphocytes # 0.64 L, Monocytes # 1.4 H, Eosinophils # 0.0, Absolute Basophils 0.0 12/06/19 08:55: Urine Color Yellow, Urine Appearance Cloudy, Urine pH 5.5, Ur Specific [place] 1.015, Urine Protein 30 H, Urine Glucose (UA) Negative, Urine Ketones Negative, Urine Blood 150 H, Urine Nitrate Negative, Urine Bilirubin Negative, Prot Sulfosalicylic Acd 2+ H, Urine Urobilinogen Normal, Ur Leukocyte Esterase 100 H, Urine RBC 5-10 H, Urine WBC >50 H, Ur Epithelial Cells None seen, Urine Bacteria 4+ H, Urine Culture Comments Culture to follow 12/06/19 11:12: SARS-CoV-2 (PCR) Not detected 12/07/19 06:35: WBC 16.6 H, RBC 3.83 L, Hgb 10.2 L, Hct 34.2 L, MCV 89.3, MCH 26.6 L, MCHC 29.8 L, RDW 14.5 H, Plt Count 185, MPV 8.8, Immature Gran % (Auto) 0.60 H, Immature Gran # (Auto) 0.10 H, Neutrophils % 87.1 H, Lymphocytes % 4.0 L, Monocytes % 8.2, Eosinophils % 0.0, Basophils % 0.1, Nucleated RBC % 0.0, Neutrophils # 14.5 H, Lymphocytes # 0.66 L, Monocytes # 1.4 H, Eosinophils # 0.0, Absolute Basophils 0.0 12/07/19 06:35: Sodium 136, Plasma Sodium 136, Potassium 3.5, Chloride 103, Carbon Dioxide 21.4 L, Anion Gap 15.1 H, BUN 47 H, Creatinine 2.28 H, Est GFR (Non-Af Amer) 22 L, BUN/Creatinine Ratio 20.6, Random Glucose 126 H, Calcium 9.9, Calcium Adj for Albumin 10.5 H, Total Bilirubin 0.7, AST 20, ALT 20, Alkaline Phosphatase 71, Total Protein 7.3, Albumin 2.9 L 12/08/19 06:35: WBC 9.7 D, RBC 3.47 L, Hgb 9.3 L, Hct 31.0 L, MCV 89.3, MCH 26.8 L, MCHC 30.0 L, RDW 14.5 H, Plt Count 167, MPV 8.8, Immature Gran % (Auto) 0.40, Immature Gran # (Auto) 0.04 H, Neutrophils % 82.2 H, Lymphocytes % 6.1 L, Monocytes % 11.0 H, Eosinophils % 0.2, Basophils % 0.1, Nucleated RBC % 0.0, Neutrophils # 7.9 H, Lymphocytes # 0.59 L, Monocytes # 1.1 H, Eosinophils # 0.0, Absolute Basophils 0.0 12/08/19 06:35: Sodium 137, Plasma Sodium 137, Potassium 3.6, Chloride 106, Carbon Dioxide 20.3 L, Anion Gap 14.3 H, BUN 46 H, Creatinine 2.15 H, Est GFR (Non-Af Amer) 24 L, BUN/Creatinine Ratio 21.4, Random Glucose 123 H, Calcium 9.8, Calcium Adj for Albumin 10.6 H, Total Bilirubin 0.4, AST 36, ALT 39, Alkaline Phosphatase 70, Total Protein 6.7, Albumin 2.6 L Discharge Location: [facility] Disposition: [facility] Condition: Fair Level of Care: SNF Discharge Activity: Activity as tolerated Discharge Diet: General/regular food Skilled Nursing Therapy: Physical Therapy, Occupation Therapy Prescriptions (Any new or edited meds): Levofloxacin [Levaquin] 500 mg PO DAILY@1100 #5 tab Transmission Status: Pending to [facility] Complete Home Medications List: Complete Home Medication List: Aspirin [Aspirin EC] 81 mg PO DAILY 09/05/17 allopurinol 100 mg tablet 100 mg PO DAILY #31 tab 04/01/18 atorvastatin 40 mg tablet 40 mg PO HS #31 tab 04/01/18 mycophenolate sodium 360 mg tablet,delayed release 360 mg PO BID tab 04/01/18 carvedilol 25 mg tablet 25 mg PO BID #62 tab 04/09/19 tacrolimus 0.5 mg capsule 0.5 mg PO Q12H cap 08/20/18 cetirizine 10 mg tablet 10 mg PO DAILY tab 10/15/18 menthol 4 % topical gel 1 applic TP TID #118 ml 12/02/18 acetaminophen 500 mg tablet 500 mg PO Q6H PRN tab MDD 3000 mg 12/31/18 acetaminophen 500 mg tablet 500 mg PO TID #90 tab 12/31/18 hydrochlorothiazide 12.5 mg capsule 12.5 mg PO DAILY #30 cap 01/01/19 multivitamin,xk-xxzr-thwolodp 1 tab PO DAILY #30 tab 02/04/19 colestipol 1 gram tablet 1 g PO TID tab 02/25/19 sertraline 25 mg tablet 25 mg PO DAILY #30 tab 02/25/19 peg [id number]-crgabapydwbt-omduvadb 1 %-0.2 %-0.2 % eye drops 1 drp OP 4-6XD PRN #15 ml 06/04/19 oxybutynin chloride 5 mg tablet,extended release 24 hr 5 mg PO DAILY 11/05/19 Levofloxacin [Levaquin] 500 mg PO DAILY@1100 #5 tab 12/08/19 Forms: Patient Portal Registration
[2019-12-08] MEDS: ASPIRIN 81 MG TABLET.DR PO SCH (10:29)
[2019-12-08] MEDS: MULTIVITAMIN/IRON/FOLIC ACID 1 TAB TABLET PO SCH (10:29)
[2019-12-08] MEDS: HYDROCHLOROTHIAZIDE 12.5 MG CAPSULE PO SCH (10:29)
[2019-12-08] MEDS: LORATADINE 10 MG TABLET PO SCH (10:29)
[2019-12-08] MEDS: SERTRALINE HCL 50 MG TABLET PO SCH (10:30)
[2019-12-08] MEDS: TACROLIMUS ANHYDROUS 0.5 MG CAPSULE PO SCH (10:30)
[2019-12-08] MEDS: COLESTIPOL HCL 1 G TABLET PO SCH (10:30)
[2019-12-08] MEDS: CARVEDILOL 25 MG TABLET PO SCH (10:30)
[2019-12-08] MEDS: POLYVINYL ALCOHOL 150 DROP BTL OP SCH (10:30)
[2019-12-08] MEDS: MUPIROCIN 22 APPL TUBE TP SCH (10:31)
[2019-12-08] MEDS: PSYLLIUM SEED 1 PACKET PACKET PO SCH (10:31)
[2019-12-08] MEDS: MENTHOL TP SCH (10:31)
[2019-12-08] MEDS ORDERED: LEVOFLOXACIN 500 MG TABLET PO SCH (11:00)
[2019-12-08 15:53] VITALS: BP 137/60
[2019-12-09] MEDS ORDERED: LEVOFLOXACIN IN DEXTROSE 5 % 500 MG/100 ML BAG IV SCH (09:00)
[2019-12-10] MEDS ORDERED: LEVOFLOXACIN 500 MG TABLET PO SCH (11:00)
== END 2019-12-08 12:30 | DRG 698 ==
LOC: ER 08:02 → MS 11:09
PROVIDERS: ADMIT Family Medicine; ATTEND Family Medicine
DX: N39.0 Urinary tract infection, site not specified; T86.19 Other complication of kidney transplant; I12.0 Hypertensive chronic kidney disease with stage 5 chronic kidney disease or end stage renal disease; A49.02 Methicillin resistant Staphylococcus aureus infection, unspecified site; N18.6 End stage renal disease; B96.1 Klebsiella pneumoniae [K. pneumoniae] as the cause of diseases classified elsewhere; Z85.528 Personal history of other malignant neoplasm of kidney; N17.9 Acute kidney failure, unspecified; F32.9 Major depressive disorder, single episode, unspecified; Z11.59 Encounter for screening for other viral diseases

== ENCOUNTER 2020-08-17 03:58 | Inpatient (IN) ==
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
[2020-08-17] MEDS ORDERED: ONDANSETRON HCL/PF 2 MG/ML VIAL IV ONE (04:41)
[2020-08-17 04:53] LABS: Hematocrit 40.5 % (37.0-47.0); Hemoglobin 12.2 gm/dL (12.5-16.0); Mean Cell Volume 88.4 fl (78-100); Mean Corpuscular Hemoglobin 26.6 pg (27-31); Mean Corpuscular Hgb Conc 30.1 g/dl (32-36); Mean Platelet Volume 8.5 fl (8-12.5); Platelet Count 179 K/mm3 (150-450); Red Blood Count 4.58 M/mm3 (4.2-5.4); Red Cell Distribution Width 14.7 % (11.5-14.0); White Blood Count 21.4 K/mm3 (4.0-10.5)
[2020-08-17 04:58] LABS: Total Cells Counted 100
[2020-08-17 05:08] LABS: Urine Bilirubin Negative (NEGATIVE); Urine Blood 50 /ul (NEGATIVE); Urine Ketone Negative (NEGATIVE); Urine Nitrite Negative (NEGATIVE); Urine Protein 30 mg/dL (NEGATIVE); Urine Urobilinogen Normal (NORMAL)
[2020-08-17 05:15] LABS: Albumin * 3.7 gm/dl (3.4-5.0); Anion Gap 17.5 mmol/L (6.8-13.8); BUN/Creatinine Ratio 23.9 (9.0-21.6); Bilirubin, Total 0.7 mg/dL (0.0-1.1); Ca. Corrected For Albumin 9.7 mg/dL (8.4-10.2); Calcium * 9.8 mg/dL (7.9-10.9); Carbon Dioxide 22.1 mmol/L (24-32.6); Potassium 4.6 mmol/L (3.4-4.6); Total Protein 8.3 gm/dL (6.2-8.2)
[2020-08-17 05:23] LABS: Urine Amorphous Sediment Few - 1+ (NONE-FEW); Urine Appearance Cloudy (CLEAR); Urine Bacteria TRACE; Urine Color Yellow; Urine RBC 0-5 /hpf (0-5)
[2020-08-17 05:32] LABS: Band 2 % (0-2.0); Lymphocyte 3 % (20-51); Monocyte 4 % (0-9); Neutrophil 91 % (42-75); Neutrophil # 19.5 K/mm3 (1.3-6.0)
[2020-08-17 05:33] LABS: Polychromasia Trace
[2020-08-17 05:34] LABS: Ovalocytes Trace; Platelet Estimate Normal (NORMAL)
[2020-08-17] MEDS ORDERED: NORMAL SALINE 1,000 ML IV PRN ×2 (06:01→14:50)
[2020-08-17] MEDS ORDERED: cefTRIAXone SODIUM 1,000 MG/100 ML BAG IV ONE (06:31)
[2020-08-17] MEDS ORDERED: LABETALOL HCL 5 MG/ML VIAL IV ONE (06:58)
[2020-08-17] MEDS ORDERED: NORMAL SALINE 1,000 ML IV ONE (07:12)
[2020-08-17] MEDS: CARVEDILOL 25 MG TABLET PO SCH ×2 (09:39→20:50)
[2020-08-17] MEDS: HYDROCHLOROTHIAZIDE 12.5 MG CAPSULE PO SCH (09:39)
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
[2020-08-17] MEDS: OXYBUTYNIN CHLORIDE 5 MG TABLET PO SCH ×2 (14:16→20:51)
[2020-08-17] MEDS: ACETAMINOPHEN 500 MG TABLET PO SCH ×2 (14:33→20:50)
[2020-08-17] MEDS: TACROLIMUS ANHYDROUS 0.5 MG CAPSULE PO SCH (20:52)
[2020-08-18 06:32] LABS: Hemoglobin 9.6 gm/dL (12.5-16.0); Mean Cell Volume 87.9 fl (78-100); Mean Corpuscular Hemoglobin 26.4 pg (27-31); Mean Platelet Volume 8.2 fl (8-12.5); Neutrophil # 9.3 K/mm3 (1.3-6.0); Neutrophil % 85.1 % (42-75.0); Platelet Count 148 K/mm3 (150-450); Red Blood Count 3.64 M/mm3 (4.2-5.4); Red Cell Distribution Width 15.2 % (11.5-14.0); White Blood Count 10.9 K/mm3 (4.0-10.5)
[2020-08-18] MEDS ORDERED: FLUTICASONE PROPIONATE 120 SPRAY INHALER NS PRN (08:58)
--- NOTE | 2020-08-18 08:59 | PN ---
Subjective - Date and Time Seen Date: 08/18/20 Time: 08:55 Subjective Narrative: She feels better, but still has erythema of her right medial lower leg. Objective - Review of Systems Generalized/Overall Review: Denies: Fever Respiratory: Denies: Cough, Shortness of Breath Cardiac: Denies: Edema Abdominal: Reports: No Symptoms Reported Genitourinary Symptoms: Reports: No Symptoms Reported Skin: Reports: Change in Color - Vitals Vitals: Last Vital Signs Temp 37.0 C 08/18/20 06:57 Pulse 74 08/18/20 06:57 Resp 20 08/18/20 06:57 BP 151/57 H 08/18/20 06:57 Pulse Ox 97 08/18/20 06:57 - Abnormal Lab Findings Abnormal Lab Findings: Abnormal Lab Results 08/18/20 Range/Units 06:18 WBC 10.9 H D (4.0-10.5) K/mm3 RBC 3.64 L (4.2-5.4) M/mm3 Hgb 9.6 L (12.5-16.0) gm/dL Hct 32.0 L (37.0-47.0) % MCH 26.4 L (27-31) pg MCHC 30.0 L (32-36) g/dl RDW 15.2 H (11.5-14.0) % Plt Count 148 L (150-450) K/mm3 Immature Gran % (Auto) 0.60 H (0.001-0.429) % Immature Gran # (Auto) 0.07 H (0.000-0.0310) K/mm3 Neutrophils % 85.1 H (42-75.0) % Lymphocytes % 6.3 L (20-51) % Neutrophils # 9.3 H (1.3-6.0) K/mm3 Lymphocytes # 0.69 L (1.5-3.5) k/mm3 - Exam Constitutional: Present: Alert, Cooperative, No distress, Elderly, Morbidly obese Respiratory: Present: normal breath sounds, no respiratory distress, other - oxygenating on room air Cardiovascular/Chest: Present: regular rate, rhythm Abdomen: Present: obese Skin Exam: Present: other - erythema of anterior and medial right lower leg appears more erythematous than yesterday Appearance: Present: impaired insight, impaired recent memory Eye contact: Present: cooperative, good eye contact Assessment/Plan Plan Narrative: Her right lower leg appears worse than yesterday, but her WBC improved from 21.4 to 10.9. She is conversational and does not appear ill on exam. Will change from rocephin to po keflex. She will need an additional night in the hospital to ensure this resolves. With her history of renal transplant and anti- rejection meds, she is immunocompromised and at risk for sudden deterioration, similar to what happened the night of her ED visit. Urine culture does not show bacterial growth thus far, so UTI not likely. - Problems/Diagnosis (1) Cellulitis Problem: Acute (2) Pneumonia Problem: Ruled-out Narrative: She is not requiring oxygen, is not coughing, and does not have increased shortness of breath. PNA unlikely to be responsible for her presentation. (3) HTN (hypertension) Problem: Chronic (4) Renal transplant, status post Problem: Chronic (5) skilled nursing resident Problem: Chronic (6) CAD (coronary artery disease) Problem: Chronic Qualifiers: Coronary Disease-Associated Artery/Lesion type: unspecified vessel or lesion type [place] vs. transplanted heart: unspecified whether [place] or transplanted heart (7) Cerebral artery occlusion with cerebral infarction Problem: Chronic
[2020-08-18] MEDS: ACETAMINOPHEN 500 MG TABLET PO SCH ×3 (09:31→18:23)
[2020-08-18] MEDS: TACROLIMUS ANHYDROUS 0.5 MG CAPSULE PO SCH ×2 (09:31→20:50)
[2020-08-18] MEDS: OXYBUTYNIN CHLORIDE 5 MG TABLET PO SCH ×2 (09:31→20:48)
[2020-08-18] MEDS: HYDROCHLOROTHIAZIDE 12.5 MG CAPSULE PO SCH (09:31)
[2020-08-18] MEDS: CARVEDILOL 25 MG TABLET PO SCH ×2 (09:31→20:48)
[2020-08-18] MEDS: LORATADINE 10 MG TABLET PO SCH (09:32)
[2020-08-18] MEDS: CEPHALEXIN MONOHYDRATE 500 MG CAPSULE PO SCH ×2 (09:32→18:23)
[2020-08-18] MEDS ORDERED: DIPHENOXYLATE HCL/ATROP SULF 2.5 MG TABLET PO PRN (14:32)
[2020-08-19] MEDS: CEPHALEXIN MONOHYDRATE 500 MG CAPSULE PO SCH ×2 (00:39→09:06)
[2020-08-19 06:53] LABS: Hematocrit 35.8 % (37.0-47.0); Hemoglobin 10.7 gm/dL (12.5-16.0); Mean Cell Volume 88.2 fl (78-100); Mean Corpuscular Hemoglobin 26.4 pg (27-31); Mean Corpuscular Hgb Conc 29.9 g/dl (32-36); Mean Platelet Volume 8.8 fl (8-12.5); Neutrophil % 79.6 % (42-75.0); Platelet Count 173 K/mm3 (150-450); Red Blood Count 4.06 M/mm3 (4.2-5.4); Red Cell Distribution Width 15.1 % (11.5-14.0); White Blood Count 7.6 K/mm3 (4.0-10.5)
[2020-08-19 07:11] LABS: Albumin * 3.1 gm/dl (3.4-5.0); Anion Gap 12.2 mmol/L (6.8-13.8); Bilirubin, Total 0.3 mg/dL (0.0-1.1); Ca. Corrected For Albumin 9.9 mg/dL (8.4-10.2); Calcium * 9.5 mg/dL (7.9-10.9); Carbon Dioxide 24.1 mmol/L (24-32.6); Potassium 4.3 mmol/L (3.4-4.6); Total Protein 7.5 gm/dL (6.2-8.2)
--- NOTE | 2020-08-19 08:36 | DS ---
(1) Cellulitis Problem: Acute Qualifiers: Site of cellulitis: extremity Site of cellulitis of extremity: lower extremity Laterality: right Qualified Code(s): L03.115 - Cellulitis of right lower limb (2) Pneumonia Problem: Ruled-out (3) HTN (hypertension) Problem: Chronic (4) Renal transplant, status post Problem: Chronic (5) [facility] resident Problem: Chronic (6) CAD (coronary artery disease) Problem: Chronic Qualifiers: Coronary Disease-Associated Artery/Lesion type: unspecified vessel or lesion type [place] vs. transplanted heart: unspecified whether [place] or transplanted heart (7) Cerebral artery occlusion with cerebral infarction Problem: Chronic Date of Discharge:: 08/19/20 Hospital Course: Patient with PMHx of previous renal transplant for renal cell carcinoma, HTN, CKD, previous CVA, possible dementia is a resident of the [facility]. She was found on the floor, and had vomited several times. She was at her baseline when she went to bed. Her BP was elevated and she had a temp of 103, so she was sent to the ED. In the ED, WBC elevated at 21.4. GFR was low at 30, but this is her baseline. She was tachycardic with HR in the 110's and tachypneic with RR as high as 25, so she met sepsis criteria. CXR was suspicious for PNA. UA positive for blood, leukocyte esterase, but only trace bacteria. She has erythema of her right lower extremity, and bruising of her right 3rd digit and hand. COVID negative. BP elevated as high as 206/76. She reports feeling fine until she fell a few days ago and bruised her right 3rd digit. She states she's had a cough. Denies dysuria or frequency. She does not appear acutely ill on admission exam. Vomiting resolved after arrival to the ED. She is admitted for antibiotics, IV fluids, and acute monitoring. She did not display signs of pneumonia after admission, and was oxygenating on room air, so she was not felt to have pneumonia. Urine culture did not grow bacteria. Her presentation was felt to be due to cellulitis. She initially received rocephin, but erythema persisted, though her WBC improved. this was changed to keflex, and erythema was improved, but still present on the day of DC. Will complete one week of antibiotics with po keflex. She agreed with DC back to facility. Procedures Performed: none Results and Findings: Pending Mircobiology Results 08/17/20 05:15 Blood Blood Culture - Preliminary NO GROWTH AFTER 48 HOURS 08/17/20 04:30 Blood Blood Culture - Preliminary NO GROWTH AFTER 48 HOURS Lab Pending Results 08/17/20 04:30: WBC 21.4 H, RBC 4.58, Hgb 12.2 L, Hct 40.5, MCV 88.4, MCH 26.6 L, MCHC 30.1 L, RDW 14.7 H, Plt Count 179, MPV 8.5, Neutrophils % (Manual) 91 H, Band Neuts % (Manual) 2, Lymphocytes % (Manual) 3 L, Monocytes % (Manual) 4, Neutrophils # (Manual) 19.5 H, Lymphocytes # (Manual) 0.6 L, Monocytes # (Manual) 0.9, Platelet Estimate Normal, Polychromasia Trace, Ovalocytes Trace 08/17/20 04:30: Sodium 140, Plasma Sodium 140, Potassium 4.6, Chloride 105, Carbon Dioxide 22.1 L, Anion Gap 17.5 H, BUN 42 H, Creatinine 1.76 H, Est GFR (Non-Af Amer) 30 L, BUN/Creatinine Ratio 23.9 H, Random Glucose 122 H, Calcium 9.8, Calcium Adj for Albumin 9.7, Total Bilirubin 0.7, AST 16, ALT 22, Alkaline Phosphatase 101, Total Protein 8.3 H, Albumin 3.7 08/17/20 04:30: Lactic Acid, Venous 1.1 08/17/20 04:30: B-Natriuretic Peptide 404 08/17/20 05:00: Urine Color Yellow, Urine Appearance Cloudy, Urine pH 6.0, Ur Specific Heth 1.020, Urine Protein 30 H, Urine Glucose (UA) Negative, Urine Ketones Negative, Urine Blood 50 H, Urine Nitrate Negative, Urine Bilirubin Negative, Urine Urobilinogen Normal, Ur Leukocyte Esterase 25 H, Urine RBC 0-5, Urine WBC 5-10 H, Ur Epithelial Cells 0-5, Amorphous Sediment Few - 1+, Urine Bacteria Trace, Urine Culture Comments Culture to follow 08/17/20 07:19: SARS-CoV-2 (PCR) Not detected 08/18/20 06:18: WBC 10.9 H D, RBC 3.64 L, Hgb 9.6 L, Hct 32.0 L, MCV 87.9, MCH 26.4 L, MCHC 30.0 L, RDW 15.2 H, Plt Count 148 L, MPV 8.2, Immature Gran % (Auto) 0.60 H, Immature Gran # (Auto) 0.07 H, Neutrophils % 85.1 H, Lymphocytes % 6.3 L, Monocytes % 7.7, Eosinophils % 0.2, Basophils % 0.1, Nucleated RBC % 0.0, Neutrophils # 9.3 H, Lymphocytes # 0.69 L, Monocytes # 0.8, Eosinophils # 0.0, Absolute Basophils 0.0 08/18/20 11:18: Stl C.difficile Tox A&B Negative 08/19/20 06:30: WBC 7.6 D, RBC 4.06 L, Hgb 10.7 L, Hct 35.8 L, MCV 88.2, MCH 26.4 L, MCHC 29.9 L, RDW 15.1 H, Plt Count 173, MPV 8.8, Immature Gran % (Auto) 0.40, Immature Gran # (Auto) 0.03, Neutrophils % 79.6 H, Lymphocytes % 9.5 L, Monocytes % 8.0, Eosinophils % 2.2, Basophils % 0.3, Nucleated RBC % 0.0, Neutrophils # 6.0, Lymphocytes # 0.72 L, Monocytes # 0.6, Eosinophils # 0.2, Absolute Basophils 0.0 08/19/20 06:30: Sodium 141, Plasma Sodium 141, Potassium 4.3, Chloride 109 H, Carbon Dioxide 24.1, Anion Gap 12.2, BUN 43 H, Creatinine 1.59 H, Est GFR (Non- Af Amer) 33 L, BUN/Creatinine Ratio 27.0 H, Random Glucose 119 H, Calcium 9.5, Calcium Adj for Albumin 9.9, Total Bilirubin 0.3, AST 26, ALT 33, Alkaline Phosphatase 75, Total Protein 7.5, Albumin 3.1 L Discharge Location: [facility] Disposition: Intermediate Care Facility ICF Condition: Good Level of Care: ICF Discharge Activity: Activity as tolerated Discharge Diet: General/regular food Referrals: Sandra Garcia DO [Primary Care Provider] - Additional Patient Instructions (free text): DC information to [facility] and call report. Prescriptions (Any new or edited meds): Cephalexin Monohydrate [Keflex] 500 mg PO Q8H #15 cap Transmission Status: Pending to Right [facility] Complete Home Medications List: Complete Home Medication List: Aspirin [Aspirin EC] 81 mg PO DAILY 09/05/17 allopurinol 100 mg tablet 100 mg PO DAILY #31 tab 04/01/18 atorvastatin 40 mg tablet 1 tab PO HS #31 tab 04/01/18 mycophenolate sodium 360 mg tablet,delayed release 1 tab PO BID tab 04/01/18 carvedilol 25 mg tablet 1 tab PO BID #62 tab 06/18/18 menthol 4 % topical gel 1 applic TP TID #118 ml 12/02/18 multivitamin,[id number] 1 tab PO DAILY #30 tab 02/04/19 colestipol 1 gram tablet 1 tab PO TID tab 02/25/19 peg [id number] 1 %-0.2 %-0.2 % eye drops 1 drp OP 4-6XD PRN #15 ml 06/04/19 fluticasone propionate 50 mcg/actuation nasal spray,suspension 2 spray CATARINO DAILY PRN 12/12/19 menthol 7.5 mg lozenges 1 keyla MUCOUS MEMBRANE Q2H PRN 12/12/19 cetirizine 10 mg tablet 0.5 tab PO DAILY tab 03/03/20 Acetaminophen 1 tab PO TID 03/17/20 Carbamide Peroxide [Murine Ear Drops] 2 drp EACH EAR BID PRN 03/17/20 Hydrochlorothiazide [Microzide] 1 tab PO DAILY 03/17/20 Car Antifungal 1 appl TP PRN 05/05/20 Metamucil Fiber Wafer 1 packet PO BID 05/26/20 Tacrolimus [Astagraf Xl] 1 cap PO BID 05/26/20 oxybutynin chloride 5 mg tablet 5 mg PO BID 08/11/20 Cephalexin Monohydrate [Keflex] 500 mg PO Q8H #15 cap 08/19/20 Forms: Patient Portal Registration
[2020-08-19] MEDS: HYDROCHLOROTHIAZIDE 12.5 MG CAPSULE PO SCH (09:06)
[2020-08-19] MEDS: TACROLIMUS ANHYDROUS 0.5 MG CAPSULE PO SCH (09:06)
[2020-08-19] MEDS: ACETAMINOPHEN 500 MG TABLET PO SCH (09:07)
[2020-08-19] MEDS: OXYBUTYNIN CHLORIDE 5 MG TABLET PO SCH (09:07)
[2020-08-19] MEDS: LORATADINE 10 MG TABLET PO SCH (09:07)
[2020-08-19] MEDS: CARVEDILOL 25 MG TABLET PO SCH (09:07)
[2020-08-19 11:58] VITALS: BP 174/66
== END 2020-08-19 11:09 | DRG 603 ==
LOC: ER 03:58 → MS 07:24
PROVIDERS: ADMIT Family Medicine; ATTEND Family Medicine